=== PATIENT | female | born 1975 | race Hispanic/Latino ===

== ENCOUNTER 2019-05-03 15:38 | Emergency (ER) | payer BC ==
--- NOTE | 2019-05-03 17:02 | Event Note ---
ED Screening Note Date of service: 05/03/19 Time: 16:58 ED Screening Note: This initial assessment/diagnostic orders/clinical plan/treatment(s) is/are subject to change based on patients health status, clinical progression and re- assessment by fellow clinical providers in the ED. Further treatment and workup at subsequent clinical providers discretion. Patient/guardian urged not to elope from the ED as their condition may be serious if not clinically assessed and managed. 44 yo female fell off ladder onto her left knee. C/o of left knee pain. She denies any head neck or back trauma or pain . Initial orders include: Left knee x-ray
--- NOTE | 2019-05-03 17:31 | XRay Report ---
Left knee-3 views INDICATION: left knee pain and swelling. COMPARISON: None. IMPRESSION: No acute osseous or soft tissue abnormality. Mild tricompartmental DJD. Signer Name: Renny Dallas MD Signed: 05/03/2019 5:27 PM Workstation Name: [id number]
[2019-05-03] MEDS ORDERED: IBUPROFEN 600 MG TAB PO ONE (20:06)
[2019-05-03] MEDS ORDERED: HYDROcodone/ACETAMINOPHEN 7.5-325MG TAB PO ONE (20:06)
[2019-05-03] MEDS ORDERED: ONDANSETRON 4 MG ODT TAB PO ONE (20:06)
--- NOTE | 2019-05-03 20:30 | Emergency Department Report ---
ED Fall HPI - General Chief Complaint: Fall Stated Complaint: FALL INJURY/LFT KNEE PAIN Time Seen by Provider: 05/03/19 16:57 Source: patient Mode of arrival: Ambulatory - History of Present Illness Initial Comments: Patient is a 44-year-old -Turkish female with no past medical history except hypertension who presents to the ED with complaint of acute onset persistent severe left knee pain and swelling after she missed a step when coming down a ladder which was 2 feet high and fell on the ground landing on her left knee about 6 hours ago. Patient states that the pain in the left knee got worse in the last 3 hours side that she became stiff and was unable performing activities range of motion because of severe pain. Patient denies head and neck injuries, back pain, hip pain, dizziness, syncope, seizures, chest pain or shortness of breath, numbness and tingling or weakness of lower extremities bilaterally. MD Complaint: fall, other (left knee pain and swelling) -: Sudden, hour(s) (6), This afternoon Fall From: standing, down stairs (#), other (fell off a ladder 2 feet high) When Fall Occurred: 4-6 hours [employer] Fall Witnessed: yes, by family Place Fall Occurred: home Loss of Consciousness: none Prolonged Down Time?: no Symptoms Prior to Fall: none Location: other (left knee pain) Location - Extremities: Left: Knee (Pain and swelling) Severity: severe Severity scale (0 -10): 7 Quality: sharp, aching Context: tripped/slipped Associated Symptoms: denies. denies: headache, neck pain, numbness, weakness, chest paint, abdominal pain, hematuria, unable to walk, lightheaded, vertigo - Related Data Previous Rx's Medication Instructions Recorded Last Taken Type Acetaminophen/Codeine [Tylenol 1 tab PO Q6H PRN 3 Days #12 tab 05/03/19 Unknown Rx /Codeine # 3 tab] Cyclobenzaprine [Flexeril] 10 mg PO Q8H PRN #21 tablet 05/03/19 Unknown Rx Ibuprofen [Motrin] 800 mg PO Q8HR PRN #24 tablet 05/03/19 Unknown Rx Allergies Allergy/AdvReac Type Severity Reaction Status Date / Time No Known Allergies Allergy Unverified 05/03/19 20:13 ED Review of Systems ROS: Stated complaint: FALL INJURY/LFT KNEE PAIN Other details as noted in HPI Constitutional: denies: chills, fever Eyes: denies: eye pain, eye discharge, vision change ENT: denies: ear pain, throat pain Respiratory: denies: cough, shortness of breath, wheezing Cardiovascular: denies: chest pain, palpitations Endocrine: no symptoms reported Gastrointestinal: denies: abdominal pain, nausea, diarrhea Genitourinary: denies: urgency, dysuria, discharge Musculoskeletal: joint swelling (left knee mild swelling), arthralgia (left knee pain). denies: back pain Skin: denies: rash, lesions Neurological: denies: headache, weakness, paresthesias Psychiatric: denies: anxiety, depression Hematological/Lymphatic: denies: easy bleeding, easy bruising ED Past Medical Hx - Past Medical History Previous Medical History?: Yes Hx Hypertension: Yes - Surgical History Past Surgical History?: Yes - Social History Smoking Status: Never Smoker Substance Use Type: None - Medications Home Medications: Home Medications Medication Instructions Recorded Confirmed Last Taken Type Acetaminophen/Codeine [Tylenol 1 tab PO Q6H PRN 3 Days #12 tab 05/03/19 Unknown Rx /Codeine # 3 tab] Cyclobenzaprine [Flexeril] 10 mg PO Q8H PRN #21 tablet 05/03/19 Unknown Rx Ibuprofen [Motrin] 800 mg PO Q8HR PRN #24 tablet 05/03/19 Unknown Rx ED Physical Exam - General Limitations: No Limitations General appearance: alert, in no apparent distress - Head Head exam: Present: atraumatic, normocephalic, normal inspection - Eye Eye exam: Present: normal appearance, PERRL, EOMI Pupils: Present: normal accommodation - ENT ENT exam: Present: normal exam, normal orophraynx, mucous membranes moist, TM's normal bilaterally, normal external ear exam - Neck Neck exam: Present: normal inspection, full ROM. Absent: tenderness - Respiratory Respiratory exam: Present: normal lung sounds bilaterally. Absent: respiratory distress, wheezes, rhonchi, stridor, chest wall tenderness, accessory muscle use, decreased breath sounds - Cardiovascular Cardiovascular Exam: Present: normal rhythm, tachycardia, normal heart sounds. Absent: systolic murmur, diastolic murmur, rubs, gallop - GI/Abdominal GI/Abdominal exam: Present: soft, normal bowel sounds. Absent: tenderness, guarding, hyperactive bowel sounds - Extremities Exam Extremities exam: Present: normal inspection, tenderness (palpable left knee tenderness with mild swelling and limited range of motion due to pain), joint swelling (left knee). Absent: full ROM (limited ROM of left knee due to pain), normal capillary refill, calf tenderness - Back Exam Back exam: Present: normal inspection, full ROM. Absent: tenderness, muscle spasm, paraspinal tenderness - Neurological Exam Neurological exam: Present: alert, oriented X3, CN II-XII intact, normal gait, reflexes normal - Psychiatric Psychiatric exam: Present: normal affect, normal mood - Skin Skin exam: Present: warm, dry, intact, normal color. Absent: rash ED Course Vital Signs 05/03/19 05/03/19 05/03/19 15:47 17:03 20:14 Temperature 98.3 F 98.3 F Pulse Rate 102 H 102 H Respiratory 18 18 16 Rate Blood Pressure 142/76 142/76 O2 Sat by Pulse 96 96 Oximetry - Reevaluation(s) Reevaluation #1: 05/03/19 20:34 44-year-old AA female who presented to the ED with left knee pain after she fell off up to feet ladder 6 hours ago and landed on the left knee with no loss of consciousness. In the ED, patient is alert and oriented 3 but appears to be in pain. Patient was treated for pain in the ED and left knee x-ray shows no acute fractures or subluxations. On reevaluation, patient's pain is moderately controlled with medications. Patient left knee worse splinted with Alessandro wrap and patient discharged home on medications for pain and muscle relaxants, and was advised to follow-up with her primary care physician in 7-10 days for reevaluation. ED Medical Decision Making - Radiology Data Radiology results: report reviewed, image reviewed Left knee x-ray shows no acute fractures or subluxations. - Medical Decision Making 44-year-old AA female who presented to the ED with left knee pain after she fell off up to feet ladder 6 hours ago and landed on the left knee with no loss of consciousness. In the ED, patient is alert and oriented 3 but appears to be in pain. Patient was treated for pain in the ED and left knee x-ray shows no acute fractures or subluxations. On reevaluation, patient's pain is moderately controlled with medications. This on the history, physical exam findings and imaging report, patient's left knee was sprained or the injury was due to muscle strain or contusion. Patient left knee worse splinted with Alessandro wrap and patient discharged home on medications for pain and muscle relaxants, and was advised to follow-up with her primary care physician in 7-10 days for reevaluation. - Differential Diagnosis knee fracture; knee sprain; muscle strain; contusion Critical care attestation.: If time is entered above; I have spent that time in minutes in the direct care of this critically ill patient, excluding procedure time. ED Disposition Clinical Impression: Sprain of left knee/leg Qualifiers: Encounter type: initial encounter Qualified Code(s): S83.92XA - Sprain of unspecified site of left knee, initial encounter Contusion of left lower leg Qualifiers: Encounter type: initial encounter Qualified Code(s): S80.12XA - Contusion of le ft lower leg, initial encounter Disposition: TO HOME OR SELFCARE Is pt being admited?: No Does the pt Need Aspirin: No Condition: Stable Instructions: Contusion in Adults (ED), Knee Sprain (ED) Additional Instructions: Take medication with food, drink plenty fluids and follow-up with your primary care physician in 5-7 days for reevaluation. Return to the ED immediately if symptoms get worse Prescriptions: Cyclobenzaprine [Flexeril] 10 mg PO Q8H PRN #21 tablet PRN Reason: Muscle Spasm Ibuprofen [Motrin] 800 mg PO Q8HR PRN #24 tablet PRN Reason: Pain , Severe (7-10) Acetaminophen/Codeine [Tylenol /Codeine # 3 tab] 1 tab PO Q6H PRN 3 Days #12 tab PRN Reason: Pain , Severe (7-10) Time of Disposition: 20:30 Print Language: PERSIAN
[2019-05-04 00:07] VITALS: BP 131/74
== END 2019-05-03 21:30 | disposition home or self-care (01) ==
LOC: ED 15:38
DX: S83.92XA Sprain of unspecified site of left knee, initial encounter (principal); S80.12XA Contusion of left lower leg, initial encounter; I10 Essential (primary) hypertension; Z79.899 Other long term (current) drug therapy; W11.XXXA Fall on and from ladder, initial encounter; Y93.89 Activity, other specified; Y92.89 Other specified places as the place of occurrence of the external cause; Y99.8 Other external cause status
CPT/HCPCS: Q0162